=== PATIENT | male | born 1965 | race Caucasian/White ===

== ENCOUNTER 2022-08-21 08:07 | Emergency (ER) | payer MEDICARE, MEDICAID ==
[~2022-08-21] VITALS: Ht 172.7 cm; Wt 96.4 kg
[2022-08-21 08:41] VITALS: BP 160/99
[2022-08-21] MEDS ORDERED: HYDROcodone/acetaminophen 10/325mg tab PO ONE (09:45)
== END 2022-08-21 10:24 | disposition home or self-care (01) ==
LOC: ER 08:08
DX: S46.212A Strain of muscle, fascia and tendon of other parts of biceps, left arm, initial encounter (principal); Z88.0 Allergy status to penicillin; Z87.891 Personal history of nicotine dependence; X58.XXXA Exposure to other specified factors, initial encounter; Y93.89 Activity, other specified; Y92.89 Other specified places as the place of occurrence of the external cause; Y99.8 Other external cause status
CPT/HCPCS: 99283

== ENCOUNTER 2024-08-29 02:42 | Emergency (ER) | payer MEDICARE, MEDICAID ==
[~2024-08-29] VITALS: Ht 172.7 cm; Wt 76.7 kg
[2024-08-29 02:57] VITALS: BP 144/87; PULSE 100; TEMP 97.6; O2SAT 100
[2024-08-29] MEDS ORDERED: IBUP-1986 PO (04:02)
[2024-08-29] MEDS ORDERED: HYDR-3973 PO (04:02)
[2024-08-29] MEDS ORDERED: CLIN300C3 PO (04:02)
[2024-08-29 04:03] VITALS: RESP 16
[2024-08-29] MEDS: clindamycin 150mg capsule PO ONE (04:03)
[2024-08-29] MEDS: HYDROcodone/acetaminophen 10/325mg tab PO ONE (04:03)
[2024-08-29] MEDS: ibuprofen tablet 400 MG TABLET PO ONE (04:03)
== END 2024-08-29 04:08 | disposition home or self-care (01) ==
LOC: ER 02:43
DX: K04.7 Periapical abscess without sinus (principal); Z88.0 Allergy status to penicillin
CPT/HCPCS: 99284

== ENCOUNTER 2024-09-22 08:54 | Emergency (ER) | payer MEDICARE, MEDICAID ==
[~2024-09-22] VITALS: Ht 172.7 cm; Wt 95.5 kg
[~2024-09-22 08:54] MED LIST: HYDR-3973 PO; IBUP-1986 PO
[2024-09-22 09:07] VITALS: BP 171/92; PULSE 92; RESP 14; TEMP 97; O2SAT 99
[2024-09-22] MEDS ORDERED: CLIN-97 PO (09:40)
[2024-09-22] MEDS ORDERED: BENZ9GEL TOP (09:40)
--- NOTE | 2024-09-22 09:41 | Physician Documentation ---
HPI ~ General Chief Complaint: Tooth Problem Stated Complaint: TOOTH PAIN Time Seen by MD: 09:14 OK to notify your PCP?: Yes Source: patient Mode of Arrival: POV Exam Limitations: no limitations History of Present Illness HPI Comment This is a 59-year-old male who comes in complaining of continued pain of the right lower tooth. The patient was seen here recently for the same issue and states he has a fracture tooth that at times will swollen up on him requiring antibiotics. The patient states that is he called with the dentist today who c an not get him in for another month and told him to come to the ER. The patient denies fever or chills. Medication Reconciliation Allergies: Coded Allergies: Penicillins (Verified Allergy, Unknown, 09/22/24) Scheduled PRN Hydrocodone Bit/Acetaminophen (Hydrocodone-Apap 10-325 Tablet), 1 TAB PO TID PRN PRN for pain Ibuprofen (Ibuprofen), 1 TAB PO Q8H PRN for pain Past Medical History Past Medical History: Chronic Pain, Chronic Back Pain Past Surgical History: noncontributory Alcohol Use: Occasionally Drug Use: none Lives with: Spouse Occupation: employed Physical Exam Vital Signs: Temperature: 97.0, Heart Rate: 92, Respiratory Rate: 14, BP: 171/92, Pulse Oximetry: 99, Weight: 95.450 Pulse Oximetry Reflects: adequate oxygenation General Appearance: alert, WD/WN, no apparent distress Teeth/Gums To inspection of the teeth the patient has a fractured and decayed right lower canine tooth. No obvious erythema edema of the surrounding gums. No swelling of the outer face. No purulent discharge. Face No erythema or edema of the outer face. Progress Results/Orders Reviewed/noted all lab results: Yes Results/Orders Vital Signs 09/22/24 09:07 Temp 97.0 Pulse 92 Resp 14 B/P (MAP) 171/92 Pulse Ox 99 Medical Decision Making Findings The patient was on clindamycin previously and he is allergic to penicillin. I will give him a prescription for clindamycin and topical embolus all anesthetic for the fracture tooth. He has been follow up with a dentist for definitive care. He can always return if he has any worsening or concerning symptoms. Additional Comment Dental pain. Fractured tooth. Periapical abscess Departure Disposition: 01 HOME / SELF CARE / HOMELESS Impression: Primary Impression: Fractured tooth Condition: Stable Discharge Instructions: Dental Pain Additional Instructions: Take the medication as directed and follow up with a dentist for definitive care. Referrals: NO PRIMARY CARE PROVIDER (PCP) Prescriptions Benzocaine (Anbesol) 20 % Gel..gm. 1 APPLIC TOP Q6H for Dental pain for 3 Days, #9 GM 0 Refills Prov: JAYSHREE TAPIA 09/22/24 Clindamycin HCL* (Clindamycin HCL*) 300 Mg Capsule 1 CAP PO Q6H, #40 CAP Prov: JAYSHREE TAPIA 09/22/24 Signature Scribe Signature: No scribe Attestation: The note accurately reflects work and decisions made by me.Jayshree SINGH 09/22/24 09:41 JAYSHREE TAPIA September 22, 2024 09:41
== END 2024-09-22 09:50 | disposition home or self-care (01) ==
LOC: ER 08:54
DX: S02.5XXA Fracture of tooth (traumatic), initial encounter for closed fracture (principal); Z88.0 Allergy status to penicillin; X58.XXXA Exposure to other specified factors, initial encounter; Y93.89 Activity, other specified; Y92.89 Other specified places as the place of occurrence of the external cause; Y99.8 Other external cause status
CPT/HCPCS: 99283